=== PATIENT | male | born 1945 | race Hispanic/Latino ===

== ENCOUNTER 2020-07-25 06:58 | Observation (INO) | payer MEDICARE ==
[2020-07-21 09:46] LABS: BASOPHILS % 0.2 % (0.0-1.0); EOSINOPHILS # (AUTO) 0.1 (0.0-0.4); HEMOGLOBIN 13.2 g/dL (14.0-18.0); LYMPHOCYTES # (AUTO) 1.5 (1.0-3.2); LYMPHOCYTES % 37.2 % (18.0-39.1); MEAN CORPUSCULAR HEMOGLOBIN 32.8 pg (28-32); MEAN CORPUSCULAR VOLUME 99.3 fL (81-99); MONOCYTES # (AUTO) 0.4 (0.2-0.8); MONOCYTES % 10.4 % (4.4-11.3); NEUTROPHILS % 50.2 % (38.7-80.0); PLATELET COUNT 218 x10e3/uL (140-360); RED BLOOD COUNT 4.03 x10e6/uL (4.3-5.7); RED CELL DISTRIBUTION WIDTH 13.2 % (11.7-14.4)
[~2020-07-25] VITALS: Ht 167.6 cm; Wt 90.7 kg
[~2020-07-25 06:58] MED LIST: METOPROLOL SUCC50 MG PO; TOPROL XL25 MG PO; ULTRAM 50MG50 MG PO; XARELTO20 MG PO
[2020-07-25] MEDS ORDERED: DEXAMETHASONE SOD PHOS 10 MG/1 ML VIAL ONE (07:22)
[2020-07-25] MEDS ORDERED: GABAPENTIN 300 MG CAP ONE (07:22)
[2020-07-25] MEDS ORDERED: CEFAZOLIN SOD 1 GM/NS 50ML 100 ML IV ONE (07:22)
[2020-07-25] MEDS ORDERED: CELECOXIB 200 MG CAP ONE (07:22)
[2020-07-25] MEDS ORDERED: ROPIVACAINE 246.25 MG, EPINEPHRINE HCL 1:1000 1ML 0.5 MG, CLONIDINE HCL 0.08 MG, KETORO... INJ ONE ×5 (08:00)
[2020-07-25] MEDS ORDERED: ATORVASTATIN CA20 MG PO (08:11)
[2020-07-25] MEDS ORDERED: AMLODIPINE BESY10 MG PO (08:11)
[2020-07-25] MEDS ORDERED: METOPROLOL ER PO (08:11)
[2020-07-25] MEDS ORDERED: LOSARTAN PO (08:11)
[2020-07-25] MEDS ORDERED: VANCOMYCIN HCL 1,000 MG ONE (08:54)
[2020-07-25] MEDS ORDERED: SODIUM CHLORIDE 0.9% 500ML 500 ML ONE (08:55)
[2020-07-25] MEDS ORDERED: TRANEXAMIC ACID 1,000 MG/10 ML ML ONE (08:55)
[2020-07-25] MEDS ORDERED: DIPHENHYDRAMINE HCL INJ 50 MG/ML VIAL IV PRN (11:15)
[2020-07-25] MEDS ORDERED: ACETAMINOPHEN 650 MG SUPP PR PRN (11:15)
[2020-07-25] MEDS ORDERED: ONDANSETRON HCL INJ 2MG/ML 2ML 2 MG/ML VIAL IV PRN (11:15)
[2020-07-25] MEDS ORDERED: DOCUSATE SODIUM 100 MG CAP PO PRN (11:15)
[2020-07-25] MEDS ORDERED: HYDROCODONE/APAP 5MG-325MG TAB PO PRN (11:15)
[2020-07-25] MEDS ORDERED: KETOROLAC TROMETHAMINE 30 MG/ML VIAL IV PRN (11:15)
[2020-07-25] MEDS ORDERED: HYDROCODONE/APAP 7.5MG-325MG 1 EA TAB PO PRN (11:15)
[2020-07-25] MEDS ORDERED: LIDOCAINE HCL 2% JELLY 5 ML TUBE ONE (12:17)
[2020-07-25] MEDS ORDERED: SEVOFLURANE INHAL SOLN 250 ML PEN BTL ONE (12:17)
[2020-07-25] MEDS ORDERED: ONDANSETRON HCL INJ 2MG/ML 2ML 2 MG/ML VIAL ONE (12:17)
[2020-07-25] MEDS ORDERED: PROPOFOL IV EMULSION 10 MG/ML 20 ML VIAL ONE (12:17)
[2020-07-25] MEDS ORDERED: LIDOCAINE HCL 2% LOCAL INJ 5 ML SDV VIAL INJ ONE (12:17)
[2020-07-25] MEDS ORDERED: ROPIVACAINE 0.5% 5 MG/ML 30 ML SDV ONE (12:21)
[2020-07-25] MEDS ORDERED: FENTANYL CITRATE/PF 100MCG/2 ML INJ ONE (12:27)
[2020-07-25] MEDS ORDERED: MIDAZOLAM HCL 2 MG/2 ML VIAL ONE (12:27)
[2020-07-25 13:02] VITALS: BP 109/80
[2020-07-25] MEDS ORDERED: ACETAMINOPHEN 1000 MG/100 ML IV PRN (14:00)
[2020-07-25 15:41] VITALS: BP 118/76
[2020-07-25] MEDS: SODIUM CHLORIDE 0.9% 1000ML 1,000 ML IV SCH ×2 (17:38→21:15)
[2020-07-25] MEDS: CEFAZOLIN SOD 1 GM/NS 50ML 50 ML IV SCH (17:39)
[2020-07-25] MEDS: ASPIRIN 325 MG TAB PO SCH (17:39)
[2020-07-25] MEDS: CELECOXIB 100 MG CAP PO SCH (17:39)
[2020-07-25 20:00] VITALS: BP 114/74
[2020-07-25 20:22] VITALS: BP 114/74
[2020-07-25] MEDS ORDERED: ZOLPIDEM TARTRATE 5 MG TAB PO PRN (21:00)
[2020-07-25 23:54] VITALS: BP 133/87
[2020-07-26] MEDS: CEFAZOLIN SOD 1 GM/NS 50ML 50 ML IV SCH ×2 (02:14→09:14)
[2020-07-26 04:58] VITALS: BP 111/83
[2020-07-26] MEDS: SODIUM CHLORIDE 0.9% 1000ML 1,000 ML IV SCH (05:25)
[2020-07-26 06:26] LABS: HEMATOCRIT 34.6 % (38.2-49.6); HEMOGLOBIN 11.6 g/dL (14.0-18.0)
[2020-07-26 07:30] VITALS: BP 113/74
[2020-07-26 07:37] VITALS: BP 113/74
[2020-07-26] MEDS ORDERED: ATORVASTATIN 20 MG TAB PO SCH (09:00)
[2020-07-26] MEDS ORDERED: AMLODIPINE BESYLATE 10 MG TAB PO SCH (09:00)
[2020-07-26] MEDS: ASPIRIN 325 MG TAB PO SCH (09:06)
[2020-07-26] MEDS: CELECOXIB 100 MG CAP PO SCH (09:06)
[2020-07-26 11:26] VITALS: BP 118/74
== END 2020-07-26 11:50 | disposition home or self-care (01) ==
LOC: OR 06:58 → PACU V 11:04 → MED/SURG 12:39
PROVIDERS: ADMIT Specialist; ATTEND Specialist
DX: M17.0 Bilateral primary osteoarthritis of knee (principal); D64.9 Anemia, unspecified; I10 Essential (primary) hypertension
CPT/HCPCS: 27447; 36415; 71046; 73560; 85025; 86850; 86900; 86920; 93005; 97116; 97161; J0171; J0690; J1100; J1885; J2795; J3370; J7030; J7040; U0002